=== PATIENT | male | born 1990 | race Caucasian/White ===

== ENCOUNTER 2024-08-09 13:14 | Outpatient (OUT) | payer OTHER, SELFPAY ==
[2024-08-09 14:15] LABS: Basophils Percent Auto 0.8 % (0.2-2.0); Eosinophils Absolute Auto 0.1 10^3/uL (0.0-0.7); Eosinophils Percent Auto 1.2 % (0.9-7.0); Hematocrit 41.5 % (42.0-54.0); Hemoglobin 15.1 g/dL (14.0-18.0); Immature Granulocytes Abs Auto 0.01 10^3/uL (0.00-0.03); Immature Granulocytes Pct Auto 0.2 % (0.0-0.5); Lymphocytes Absolute Auto 1.6 10^3/uL (1.2-3.8); Lymphocytes Percent Auto 32.6 % (20.5-60.0); Mean Corpuscular HGB Conc 36.4 g/dL (29.9-35.2); Mean Corpuscular Hemoglobin 33.5 pg (25.9-34.0); Mean Platelet Volume 10.2 fL (9.5-13.5); Monocytes Absolute Auto 0.4 10^3/uL (0.3-0.8); Monocytes Percent Auto 8.4 % (1.7-12.0); Neutrophils Absolute Auto 2.8 10^3/uL (1.4-6.5); Neutrophils Percent Auto 56.8 % (43.0-75.0); Platelet Count 223 10^3/uL (150-450); Red Blood Count 4.51 10^6/uL (4.70-6.10); White Blood Count 4.9 10^3/uL (4.0-11.0)
[2024-08-09 14:16] LABS: Bilirubin Urine NEGATIVE (NEGATIVE); Blood Urine NEGATIVE (NEGATIVE); Clarity Urine CLEAR (CLEAR); Color Urine LT. YELLOW (YELLOW); Glucose Urine UA NEGATIVE (NEGATIVE); Ketones Urine NEGATIVE (NEGATIVE); Leukocyte Esterase Urine NEGATIVE (NEGATIVE); Nitrite Urine NEGATIVE (NEGATIVE); Protein Urine NEGATIVE (NEG/TRACE); Urobilinogen Urine 0.2 EU/dL (0.2-1.0); pH Urine 7.5 (5.0-9.0)
[2024-08-09 14:20] LABS: Urine Microscopic Indicated NO
[2024-08-09 15:09] LABS: Alanine Aminotransferase 25 U/L (16-63); Albumin Globulin Ratio 1.3; Albumin Level 4.1 g/dL (3.4-5.0); Alkaline Phosphatase 65 U/L (46-116); Anion Gap 7.5; Aspartate Amino Transferase 19 U/L (15-37); BUN Creatinine Ratio 9.3; Bilirubin Total 0.7 mg/dL (0.2-1.0); Calcium 9.1 mg/dL (8.5-10.1); Carbon Dioxide 33.3 mmol/L (21.0-32.0); Chloride 107 mmol/L (98-107); Estimated GFR (African America >60 (>=60 mL/min/1.73m^2); Estimated GFR (Non-African Ame >60 (>=60 mL/min/1.73m^2); Globulin 3.1 g/dL; Glucose 68 mg/dL (74-106); Potassium 3.8 mmol/L (3.5-5.1); Sodium 144 mmol/L (136-145); Thyroid Stimulating Hormone 1.248 uIU/mL (0.358-3.740); Total Protein 7.2 g/dL (6.4-8.2)
[2024-08-10 06:07] LABS: Vitamin B12 364 pg/mL (232-1245)
== END 2024-08-09 13:15 | disposition home or self-care (01) ==
LOC: LAB 13:20
PROVIDERS: PCP Nurse Practitioner; Visit Provider Nurse Practitioner
DX: F10.10 Alcohol abuse, uncomplicated (principal); R10.84 Generalized abdominal pain; F41.9 Anxiety disorder, unspecified
CPT/HCPCS: 36415; 80053; 81003; 82607; 82746; 84443; 85025

== ENCOUNTER 2024-09-14 08:57 | Emergency (ER) | payer SELFPAY ==
--- OUTSIDE RECORDS SUMMARY | 2019-08-08 20:12 | XMS_ITS | Continuity of Care Document ---
Author Organization [facility] Address [address] [place] [address] Phone Care Team Providers Care Draw Frame Tender Name Role Phone Pavlock DO, Max Unavailable Unavailable Allergies, Adverse Reactions, Alerts Substance Reaction Status Criticality trimethoprim Unknown Active No Information sulfamethoxazole Unknown Active No Informat ion Medications Medication Instructions Dosage Effective Dates (start - stop) Status Comments multivitamin tablet 1 tablet by mouth daily as needed - No Longer Active omeprazole 20 mg capsule,delayed release 1 tablet by mouth daily as needed - No Longer Active dicyclomine 20 mg tablet 20mg PO Q6H PRN abdominal cramping as needed - No Longer Active Imodium A-D 2 mg capsule 2mg PO PRN after each loose stool as needed - No Longer Active Do not exceed 16mg in 24 hours magnesium hydroxide 400 mg/5 mL oral suspension 30mL PO daily PRN constipation as needed - No Longer Active magnesium citrate (bulk) powder 1 bottle 12 hours after second Milk of Magnesia with continued constipation as needed - No Longer Active Colace 100 mg capsule 100mg PO BID PRN constipation as needed - No Longer Active calcium carbonate (bulk) powder 10mL PO TID PRN heartburn/indigest ion as needed - No Longer Active Tums 200 mg calcium (500 mg) chewable tablet 1-2 tablets PO TID PRN heartburn/digestio n as needed - No Longer Active loratadine 10 mg tablet 10mg PO daily PRN nasal congestion as needed - No Longer Active ibuprofen 600 mg tablet 600mg PO Q6H PRN pain as needed - No Longer Active Acetaminophen Extra Strength 500 mg tablet 1000mg PO Q4H PRN pin or temperature >99 F as needed - No Longer Active Do not exceed 4000mg in a 24 hour period. promethazine 25 mg tablet 25mg PO Q8H PRN nausea and vomiting as needed - No Longer Active Zofran 8 mg tablet 8mg PO Q6H PRN nausea and vomiting as needed - No Longer Active Reglan 10 mg tablet 10mg PO TID PRN nausea and vomiting as needed - No Longer Active hydroxyzine pamoate 50 mg capsule 50mg PO Q6H PRN anxiety as needed - No Longer Active doxepin 25 mg capsule 25mg PO QHS PRN insomnia as needed - No Longer Active Do not combine with other sleep aids. 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 Operator Acute Detox Cotton Picking Machine Operator Acute Detox Cotton Picking Machine Operator Alcohol and/or drug services- Acute Deto x Alcohol and/or drug services- Acute Deto x Alcohol and/or drug services- Acute Deto x Alcohol and/or drug services- Acute Deto x Alcohol and/or drug services- Acute Deto x DRUG TEST PRSMV DIR OPT OBS Nutrit Couns For Control Of [place] Dis Feb Tobacco Counseling Oral Hygiene Instruction Extract; Erupted Th/exposted Rt 019 Extract; Erupted Th/exposted Rt 019 Limited Oral Eval Advance Directives Directive Yes / No Effective Date File Name No Information Encounters Encounter Description Practice Location Reason(s) For Visit Diagnoses Date Provider Providers Copied on Encounter [facility], [address], [place], [id number], tel:[phone] [facility] Detox Opioid dependence with withdrawal 0 Pavlock DO Max. [address], [place], [id number], [place]. tel:[phone] [facility], [address], [place], [id number], [place] tel:[phone] [facility] Detox suboxone dependence (chief complaint) Opioid dependence with withdrawal 0 Johan Parks. [address], [place], [id number], [place]. tel:[phone] [facility], [address], [place], [id number], [place] tel:[phone] [facility] Detox Opioid dependence with withdrawal 0 Pavlock DO Max. [address], [place], [id number], [place]. tel:[phone] [facility], [address], [place], [id number], [place] tel:[phone] [facility] Detox Opioid dependence with withdrawal 0 Pavlock DO Max. [address], [place], [id number], [place]. tel:[phone] [facility], [address], [place], [id number], [place] tel:[phone] [facility] Detox Opioid dependence with withdrawal Mar- 6-202 0 Pavlock DO Max. [address], [place], [id number], [place]. tel:[phone] [facility], [address], [place], [id number], [place] tel:[phone] [facility] Detox Opioid dependence with withdrawal Mar-1 5-202 0 Pavlock DO Max. [address], [place], [id number], [place]. tel:[phone] [facility], [address], [place], [id number], [place] tel:[phone] [facility] Detox Opioid dependence with withdrawal May- 4-202 0 Pavlock DO Max. [address], [place], [id number], [place]. tel:[phone] [facility], [address], [place], [id number], [place] tel:[phone] [facility] Detox Opioid dependence with withdrawal Mar-1 3-202 0 Pavlock DO Max. [address], [place], [id number], [place]. tel:[phone] [facility], [address], [place], [id number], [place] tel:[phone] [facility] Detox heroin dependence (chief complaint) Opioid dependence with withdrawal Mar-1 2-202 0 Johan Parks. [address], [place], [id number], [place]. tel:[phone] [facility], [address], [place], [id number], [place] tel:[phone] [facility] Detox Opioid dependence with withdrawal Mar- 2-202 0 Pavlock DO Max. [address], [place], [id number], [place]. tel:[phone] [facility], [address], [place], [id number], tel:[phone] [facility] Detox Opioid dependence with withdrawal 0 Pavlock DO Max. [address], [place], [id number], [place]. tel:[phone] [facility], [address] [place] [address], [id number], tel:[phone] Dental Clinic EXT (chief complaint) Encounter for screening for dental disorders 9 [place] [facility] Gil. [address], [place], [id number], [place]. tel:[phone] [facility], [address] [place] [address], [id number], [place] tel:[phone] [facility] Detox No Information 0 Pavlock DO Max. [address], [place], [id number], [place]. tel:[phone] Family History Family Member Type Diagnosis Age At Onset Problem (finding) Family history of Diabe sky mellitus Problem (finding) Family history of Cardi ovascular disease Problem (finding) Family history of Cance r, unknown Payers Payer name Insurance type Covered alliance party ID Authorvasua rafa(s) [facility] [id number] Social History Type Description Quantity Date Captured Comments Alcohol Use Details Unknown Caffeine Use Details Unknown Tobacco Use Status Smoking Status No Information Sex Male Sexual Orientation Straight or heterosexual Gender Identity Male Vital Signs Date / Time: Height Weight BMI Pulse Rate Blood Pressure Temperature Respiratory Rate Body Surface Area Head Circumference Head Circ. Percentile Wt./Mruali. Percentile BMI percentile Pulse Ox Inhaled Ox 5:58 AM 96 /min 104/61 mm[Hg] 98 % Chief Complaint And Reason For Visit No Information Reason For Referral Reason For Referral No Information History Of Present Illness Encounter Date Complaint History Of Prese nt Illness suboxone dependence 28 year old male checked in to detox yesterday and reports last taking suboxone 2 days ago. He typically takes 16mg/day and has been using suboxone for last 2 months. He was taking heroin for 12 years previous. He last attended detox 3-4 months ago.surgical hx- R scaphoidallergies- bactrimmeds- nonetobacco- 1/2-1ppdalcohol- noneplans upon completing detox- meetings heroin dependence 28 year old kwesi lopez checked in to detox yesterday and reports last using heroin yesterday. He typically snorts 1g/day and has been using opiates for 15 years. He has attended detox twice prior with the last being May 2018.surgical hx- scaphoidallergies- bactrimmeds- nonetobacco- 1/2 ppdalcohol- relapsed on alcohol 2 weeks ago.plans upon completing detox- suboxone EXT EXT Functional Status Date Functional Assessmen t No Information Instructions Date Instruction Additional Infor mation No Information Assessments Type Assessment Date assessment Opioid dependence with withdrawa l Patient Care Teams Name Effective Dates (start - stop) Status Members No Information
[2024-09-14 09:05] VITALS: BP 124/94; PULSE 67; TEMP 36.7; O2SAT 100; BMI 25.4
--- OUTSIDE RECORDS SUMMARY | 2024-09-14 09:11 | XMS_ITS | Encounter Summary ---
Author Organization [facility] Address [address] [place] [address] Care Team Providers Care Mailing Specialist Name Role Phone Elda Almazan ALCOHOLIC COUNSELOR Unavailable [phone] Joaquim Lucas MD Primary Care Provider [phone] Joaquim Lucas MD Primary Care Provider [phone] Elda Almazan ALCOHOLIC COUNSELOR Unavailable [phone] Encounter Details Date Type Department Care Team (Late st Contact Info) Description 05/23/2023 Abstract [facility] [address] [place] [id number] Elda Almazan ALCOHOLIC COUNSELOR [address] [place] [id number] Social History Tobacco Use Types Packs/Day Years Used Date Smoking Tobacco: Every Day Cigarettes Alcohol Use Standard Drinks/Week Comments Yes 0 (1 standard drink = 0.6 oz pur e alcohol) monthly or less Humiliation, Afraid, Rape, and Kick questionnair e Answer Date Recorded Within the last year, have y ou been afraid of your partner or ex-partner? No 03/03/2023 Within the last year, have y ou been humiliated or emotionally abused in other ways by your partner or ex-partner? Patient declined 03/03/2023 Within the last year, have y ou been kicked, hit, slapped, or otherwise physically hurt by your partner or ex-partner? Patient declined 03/03/2023 Within the last year, have y ou been raped or forced to have any kind of sexual activity by your partner or ex-partner? Patient declined 03/03/2023 Social Connection and Isolation Panel [NHANES] A nswer Date Recorded Frequency of Communication with Friends and Fami ly Not on file 03/03/2023 How often do you get togethe r with friends or relatives? Once a week 03/03/2023 How often do you attend druze or restorationist serv ices? Never 03/03/2023 Do you belong to any clubs o r organizations such as druze groups, unions, fraternal or athletic groups, or school groups? No 03/03/2023 How often do you attend meet ings of the clubs or organizations you belong to? Patient declined 03/03/2023 Are you , , di vorced, , never , or living with a partner? Patient declined 03/03/2023 AUDIT-C Answer Date Recorded Q1: How often do you have a drink containing alc ohol? Patient declined 03/03/2023 Q2: How many drinks containi ng alcohol do you have on a typical day when you are drinking? Patient declined 03/03/2023 Q3: How often do you have si x or more drinks on one occasion? Patient declined 03/03/2023 Overall Financial Resource Strain (CARDIA) Answe r Date Recorded How hard is it for you to pa y for the very basics like food, housing, medical care, and heating? Patient declined 03/03/2023 [facility] - Occupational Stress Questionnaire Answer Date Recorded Do you feel stress - tense, restless, nervous, or anxious, or unable to sleep at night because your mind is troubled all the time - these days? To some extent 03/03/2023 Exercise Vital Sign Answer Date Recorde d On average, how many days pe r week do you engage in moderate to strenuous exercise (like a brisk walk)? 2 days 03/03/2023 On average, how many minutes do you engage in exercise at this level? 60 min 03/03/2023 Hunger Vital Sign Answer Date Recorded Within the past 12 months, y ou worried that your food would run out before you got the money to buy more. Patient declined Within the past 12 months, t he food you bought just didn't last and you didn't have money to get more. Patient declined 01/2023 PRAPARE - Transportation Answer Date Re corded In the past 12 months, has l ack of transportation kept you from medical appointments or from getting medications? Patient declined 03/03/2023 In the past 12 months, has l ack of transportation kept you from meetings, work, or from getting things needed for daily living? Patient declined 03/03/2023 Housing Stability Vital Sign Answer Griffin e Recorded In the last 12 months, was t here a time when you were not able to pay the mortgage or rent on time? Patient refused 03/03/20 23 In the last 12 months, how many places have you lived? 1 03/03/2023 In the last 12 months, was t here a time when you did not have a steady place to sleep or slept in a custodial (including now)? Patient refused 03/03/2023 Sex and Gender Information Value Date Recorded Sex Assigned at Not on file Legal Sex Male 6:42 PM EDT Gender Identity Not on file Sexual Orientation Not on file documented as of this encounter Plan of Treatment Not on file documented as of this encounter Visit Diagnoses Not on filedocumented in this encounter Care Teams Mailing Specialist Relationship Specialty Start Date End Date Joaquim Lucas MD [address] [place] [phone] PCP - General Family Medicine 02/26/23 07/27/23 Joaquim Lucas MD [address] [place] [phone] PCP - General Family Medicine 07/28/23 Elda Almazan NP [address] [place] [phone] Nurse Practitioner Family Medicine 02/26/23 Elda Almazan NP [address] [place] [phone] Nurse Practitioner Family Medicine 07/28/23 documented as of this encounter
--- OUTSIDE RECORDS SUMMARY | 2024-09-14 09:11 | XMS_ITS | Clinical Summary ---
Author Organization [facility] Address [id number] [address] [place] [address] Care Team Providers Care Environmental Studies Program Director Name Role Phone Anastasiya Gavin MD Primary Care Provider [phone] Allergies Active Allergy Reactions Criticality Noted Date Comments Sulfamethoxazole-Trimethoprim Hives 2017 Medications UNABLE TO FIND kratom Activ e metoprolol tartrate (LOPRESSOR) 25 mg tablet Take 1 tablet (25 mg total) by mouth once as needed (tachycardi a) for up to 1 dose. 15 tablet 1 04/01/2018 Active Active Problems Problem Noted Date Diagnosed Date SOB (shortness of breath) 04/01/2018 Abnormal EKG 06/11/2017 Heart murmur 06/11/2017 Chest pain Anxiety Palpitations Family History Medical History Relation Name Comments Coronary artery disease Father No Known Problems Mother Relation Name Status Comments Father Mother Social History Tobacco Use Types Packs/Day Years Used Date Smoking Tobacco: Every Day Cigarettes Smokeless Tobacco: Former Alcohol Use Standard Drinks/Week Comments No 0 (1 standard drink = 0.6 oz pure alcohol) History of alcohol abuse, not currently drinking Childcare Answer Date Recorded Childcare Unknown 09/02/2018 Employment Answer Date Recorded Employment Unknown 09/02/2018 Purpose - Life Answer Date Recorded Purpose and direction in life Unknown Sex and Gender Information Value Date Recorded Sex Assigned at Not on file Legal Sex Male 11:42 AM EDT Gender Identity Not on file Sexual Orientation Not on file Last Filed Vital Signs Vital Sign Reading Time Taken Comments Blood Pressure 112/68 04/01/2018 9:19 AM EST Pulse 76 04/01/2018 9:19 AM EST Temperature 36.8 C (98.3 F) 03/20/2018 3:24 PM EST Respiratory Rate 11 03/20/2018 5:00 PM EST Oxygen Saturation 99% 03/20/2018 5:00 PM EST Inhaled Oxygen Concentration - - Weight 72.6 kg (160 lb) 04/02/2018 8:03 AM EST Height 175.3 cm (5' 9 ) 04/02/2018 8:03 AM EST Body Mass Index 23.63 04/02/2018 8:03 AM EST Plan of Treatment Health Maintenance Due Date Last Done Comments Depression Screening 2001 Tobacco Screening 2001 Adult BMI Screening 09/30/2007 DTaP,Tdap and Td Vaccines (1 - Tdap) 2008 Influenza Vaccine 11/22/2024 Medical Devices Not on file Insurance Care Teams Environmental Studies Program Director Relationship Specialty Start Date End Date Anastasiya Gavin MD [address] [place] [address] PCP - General Family Medicine 05/28/18
--- NOTE | 2024-09-14 09:21 | ECG_ITS ---
[facility] Test Date: 2024-09-14 Pat Name: VENTURA COOLEY Department: Room: - Gender: Male Property Economist: : 1990 Requested By: [id number] Order Number: [id number] Reading MD: ALINA SANCHEZ M.D. Measurements Intervals [place] Rate: 53 P: 66 MA: 198 QRS: 102 QRSD: 128 T: 67 QT: 416 QTc: 398 Interpretive Statements 1100 Sinus rhythm RIGHT BUNDLE BRANCH BLOCK 7100 Abnormal right axis deviation Abnormal ECG No previous ECG available for comparison Electronically Signed On 09-14-2024 9:33:47 EDT by ALINA SANCHEZ M.D.
--- NOTE | 2024-09-14 09:21 | ED.GENADUL1 ---
HPI HPI - General Adult General Chief complaint: Dental/Oral Stated complaint: WITHDRAWLS DENTAL PAIN Time Seen by Provider: 09/14/24 09:08 History of Present Illness HPI narrative: 33-year-old male presents to the emergency department for 2 issues. First he has been having some dental pain. He has been having a problem with a tooth in his right upper dentition and does not have a dentist. Right now it is not hurting but sometimes he gets nerve pain and it shoots down into his chest. Secondly, he is weaning himself off of alcohol and has not had anything to drink for 3 days. He has been feeling a bit anxious. He has been through alcohol treatment centers in the past, the last time was a few months ago. He is not interested in doing that again mostly because of the cost. Related Data Previous Rx's ?Medication ?Instructions ?Recorded ibuprofen 800 mg tablet 800 mg PO Q8H PRN pain #20 tabs 09/14/24 lorazepam 1 mg tablet (Ativan) 1 mg PO Q8H PRN alcohol withdrawal 09/14/24 4 days #14 tabs penicillin V potassium 250 mg 250 mg PO QID 10 days #40 tabs 09/14/24 tablet Allergies Allergy/AdvReac Type Severity Reaction Status Date / Time sulfamethoxazole (From Allergy Severe Hives Verified 09/14/24 09:08 Bactrim) trimethoprim (From Bactrim) Allergy Severe Hives Verified 09/14/24 09:08 Opioid HPI Opioid Management Most Recent Opioid Data: Last Pain Scale 4 Today, 09:05 Review of Systems ROS Narrative A ten point review of systems is negative except as noted above. PFSH PFSH Social History Little interest or pleasure in doing things: not at all Feeling down, depressed, or hopeless: not at all Exam Narrative Exam Narrative: Nurses note and vital signs reviewed and patient is not hypoxic. General: The patient appears well and in no apparent distress. Patient is resting comfortably on cart. Skin: Warm, dry, no pallor noted. There is no rash noted. Head: Normocephalic, atraumatic Eye: Normal conjunctiva, no drainage Ears, Nose, Mouth, and Throat: oral mucosa is moist. Nares patent. No swelling to the floor of his mouth. He is handling his oral secretions well. No gingival swelling or erythema. No bleeding or pus present. Cardiovascular: Regular Rate and Rhythm Respiratory: Patient is in no distress, no accessory muscle use, lungs are clear to auscultation, no wheezing, rales or rhonchi Back: non-tender GI: Soft and nontender Musculoskeletal: The patient has no evidence of calf tenderness, no pitting edema, symmetrical pulses noted bilaterally Neurological: A&O, normal speech Psychiatric: Cooperative, tearful at times Constitutional Vital Signs, click to edit/add: Last Vital Signs Temp 98.1 F 09/14/24 09:05 Pulse 67 09/14/24 09:05 Resp 16 09/14/24 09:05 BP 124/94 H 09/14/24 09:05 Pulse Ox 100 09/14/24 09:05 O2 Del Method Room Air 09/14/24 09:05 Course Vital Signs Vital signs: Vital Signs Temperature 98.1 F 09/14/24 09:05 Pulse Rate 67 09/14/24 09:05 Respiratory Rate 16 09/14/24 09:05 Blood Pressure 124/94 H 09/14/24 09:05 Pulse Oximetry 100 09/14/24 09:05 Oxygen Delivery Method Room Air 09/14/24 09:05 Temperature 98.1 F 09/14/24 09:05 Pulse Rate 67 09/14/24 09:05 Respiratory Rate 16 09/14/24 09:05 Blood Pressure 124/94 H 09/14/24 09:05 Pulse Oximetry 100 09/14/24 09:05 Oxygen Delivery Method Room Air 09/14/24 09:05 Medical Decision Making MDM Narrative Medical decision making narrative: The patient was prescribed penicillin. He was offered Toradol but does not feel he needs an injection. He was also prescribed ibuprofen, no narcotics. He was prescribed a short course of Ativan for alcohol withdrawal. He has been in alcohol treatment centers before and states he has lots of resources and if he decides to go to he can do so. Treatment diagnosis and follow-up were discussed with the patient. Differential Diagnosis Differential Diagnosis: Dental caries, toothache, alcohol withdrawal Discharge Plan Discharge Chief Complaint: Dental/Oral Clinical Impression: Toothache, Alcohol withdrawal Patient Disposition: Home, Self-Care Time of Disposition Decision: 10:08 Condition: Good Mode of Transportation: Private Vehicle Prescriptions / Home Meds: New penicillin V potassium 250 mg tablet 250 mg PO QID 10 Days Qty: 40 0RF ibuprofen 800 mg tablet 800 mg PO Q8H PRN (Reason: pain) Qty: 20 0RF lorazepam [Ativan] 1 mg tablet 1 mg PO Q8H PRN (Reason: alcohol withdrawal) 4 Days Qty: 14 0RF Print Language: Czech Instructions: Alcohol Withdrawal (ED), Toothache (ED) Referrals: Elda Almazan CREATIVE SERVICES DESIGNER [Primary Care Provider, Family Practice] - 1 week
== END 2024-09-14 10:19 | disposition home or self-care (01) ==
PROVIDERS: Emergency Provider Emergency Medicine; PCP Nurse Practitioner
DX: K08.89 Other specified disorders of teeth and supporting structures (principal); F10.239 Alcohol dependence with withdrawal, unspecified
CPT/HCPCS: 93005; 99283

== ENCOUNTER 2024-11-09 12:12 | Emergency (ER) | payer MEDICAID, SELFPAY ==
[2024-11-09 12:15] VITALS: BP 137/83; PULSE 74; TEMP 37.2; O2SAT 99; BMI 24.7
--- NOTE | 2024-11-09 12:35 | ED_ITS ---
HPI HPI - General Adult General Chief complaint: Abdominal Pain Stated complaint: BOWEL PAINS Time Seen by Provider: 11/09/24 12:26 Source: patient Mode of arrival: walk-in Limitations: no limitations History of Present Illness HPI narrative: The patient is a 34-year-old male who is coming to us from a detox facility after he was admitted there for kratom and alcohol abuse, the patient is coming to the ER with constipation symptoms that he has been dealing with for the last week at least and he last took magnesium citrate almost 3 days ago that did not help him to go to the bathroom except for mildly, patient still passing gas, he has no abdominal pain but he is having abdominal distention No nausea no vomiting no history of abdominal surgeries Related Data Home Medications ?Medication ?Instructions ?Recorded ?Confirmed buspirone 10 mg tablet 10 mg PO .QHS PRN anxiety 11/09/24 clonidine HCl 0.1 mg tablet 0.1 mg PO Q12H PRN withdra wal 11/09/24 11/09/24 symptoms hydroxyzine pamoate 25 mg capsule 25 mg PO BID PRN anx iety 11/09/24 11/09/24 (Vistaril) Previous Rx's ?Medication ?Instructions ?Recorded ibuprofen 800 mg tablet 800 mg PO Q8H PRN pain #20 t abs 09/14/24 lorazepam 1 mg tablet (Ativan) 1 mg PO Q8H PRN alcohol withdrawal 09/14/24 4 days #14 tabs penicillin V potassium 250 mg 250 mg PO QID 10 days #4 0 tabs 09/14/24 tablet peg 3350-electrolytes 236 240 ml PO DAILY PRN constipa tion 11/09/24 gram-22.74 gram-6.74 gram-5.86 #4,000 mL gram solution (Golytely) Allergies Allergy/AdvReac Type Severity Reaction Status Date / Time sulfamethoxazole (From Allergy Severe Hives Verified 11/09/24 12:19 Bactrim) trimethoprim (From Bactrim) Allergy Severe Hives Verified 11/09/24 12:19 Opioid HPI Opioid Management Most Recent Opioid Data: Last Pain Scale 4 09/14/24, 09:05 Review of Systems ROS Status of ROS 10 or more systems reviewed and unremark able except as noted in history and below PFSH PFSH Social History Little interest or pleasure in doing things: not at all Feeling down, depressed, or hopeless: not at all Exam Narrative Exam Narrative: Nurses notes and vital signs reviewed and patient is not hypoxic. General: Well-appearing and in no apparent distress. Skin: Warm, dry, no pallor noted. No rash. Head: Normocephalic, atraumatic. Neck: Supple, non-tender. Eye: Pupils are equal, round and EOMI. No scleral icterus. Cardiovascular: Regular Rate and Rhythm without murmur, gallop or rub. Respiratory: No accessory muscle use or respiratory distress. Lungs are clear to auscultation, no wheezing, rales or rhonchi Chest Wall: no tenderness Back: No midline thoracic or lumbar vertebral tenderness. No CVA tenderness Musculoskeletal: normal ROM, no calf or popliteal tenderness, no lower extremity edema/swelling GI: Abdomen is soft, non-distended. Normal bowel sounds. No masses appreciated. No tenderness to palpation. No rebound, guarding, or rigidity noted. Neurological: A&O x4. No cranial nerve dysfunction observed. Constitutional Vital Signs, click to edit/add: Last Vital Signs Temp 98.9 F 11/09/24 12:15 Pulse 68 11/09/24 13:34 Resp 16 11/09/24 13:34 BP 109/70 11/09/24 13:34 Pulse Ox 97 11/09/24 13:34 O2 Del Method Room Air 11/09/24 13:34 Course Vital Signs Vital signs: Vital Signs Temperature 98.9 F 11/09/24 12:15 Pulse Rate 74 11/09/24 12:15 Respiratory Rate 18 11/09/24 12:15 Blood Pressure 137/83 11/09/24 12:15 Pulse Oximetry 99 11/09/24 12:15 Oxygen Delivery Method Room Air 11/09/24 12:15 Temperature 98.9 F 11/09/24 12:15 Pulse Rate 68 11/09/24 13:34 Respiratory Rate 16 11/09/24 13:34 Blood Pressure 109/70 11/09/24 13:34 Pulse Oximetry 97 11/09/24 13:34 Oxygen Delivery Method Room Air 11/09/24 13:34 Medical Decision Making MDM Narrative Medical decision making narrative: The patient CBC and chemistry showed no acute pathology except for mild elevation of the LFTs The patient also had x-ray of the abdomen shows moderate burden of stool The patient right now was started on GoLytely I did explain to him extensively that he need to follow-up with gastroenterology as outpatient, patient had a lot of questions and it seemed that he thought that he will get the colonoscopy done right away I did explain to him that he need to do that as outpatient right now as he does not have any abdominal pain or nausea or vomiting the patient can follow-up with outpatient The patient was discharged home with a GoLytely prescription of 240 mg daily as needed for constipation and instruction to come back in case of any increasing discomfort or pain or any nausea or vomiting Patient referred to gastroenterology as outpatient The patient is to follow up with primary care physician in next 2-3 days or to return to the emergency department should any of the signs or symptoms worsen or new symptoms develop. The patient agrees with the following Diagnosis and Treatment plan and the patient will be discharged home. Lab Data Labs: Lab Results 11/09/24 Range/Units 12:43 WBC 3.5 L (4.0-11.0) 10^3/uL RBC 4.26 L (4.70-6.10) 10^6/uL Hgb 14.2 (14.0-18.0) g/dL Hct 38.7 L (42.0-54.0) % MCV 90.8 (80.0-94.0) fL MCH 33.3 (25.9-34.0) pg MCHC 36.7 H (29.9-35.2) g/dL RDW 11.7 (11.0-15.0) % Plt Count 189 (150-450) 10^3/uL MPV 10.3 (9.5-13.5) fL Neut % (Auto) 44.6 (43.0-75.0) % Lymph % (Auto) 37.9 (20.5-60.0) % [place] % (Auto) 14.7 H (1.7-12.0) % Eos % (Auto) 1.7 (0.9-7.0) % Baso % (Auto) 0.8 (0.2-2.0) % Neut # (Auto) 1.6 (1.4-6.5) 10^3/uL Lymph # (Auto) 1.3 (1.2-3.8) 10^3/uL [place] # (Auto) 0.5 (0.3-0.8) 10^3/uL Eos # (Auto) 0.1 (0.0-0.7) 10^3/uL Baso # (Auto) 0.0 (0.0-0.1) 10^3/uL Abs Immat Gran (auto) 0.01 (0.00-0.03) 10^3/uL Imm/Tot Granulo (auto) 0.3 (0.0-0.5) % Sodium 138 (136-145) mmol/L Potassium 3.8 (3.5-5.1) mmol/L Chloride 103 (98-107) mmol/L Carbon Dioxide 28.3 (21.0-32.0) mmol/L Anion Gap 10.5 BUN 8.0 (7.0-18.0) mg/dL Creatinine 0.87 (0.70-1.30) mg/dL Est GFR ( Amer) >60 (>=60 mL/min/1.73m^2) Est GFR (Non-Af Amer) >60 (>=60 mL/min/1.73m^2) BUN/Creatinine Ratio 9.2 Glucose 89 (74-106) mg/dL Calcium 8.7 (8.5-10.1) mg/dL Magnesium 2.0 (1.8-2.4) mg/dL Total Bilirubin 0.5 (0.2-1.0) mg/dL AST 64 H (15-37) U/L ALT 80 H (16-63) U/L Alkaline Phosphatase 58 (46-116) U/L Total Protein 7.4 (6.4-8.2) g/dL Albumin 4.1 (3.4-5.0) g/dL Globulin 3.3 g/dL Albumin/Globulin Ratio 1.2 Discharge Plan Discharge Chief Complaint: Abdominal Pain Clinical Impression: Constipation Patient Disposition: Home, Self-Care Time of Disposition Decision: 13:43 Condition: Good Prescriptions / Home Meds: New peg 3350-electrolytes [Golytely] 236-22.74-6.74 -5.86 gram recon soln 240 ml PO DAILY PRN (Reason: constipation) Qty: 4000 0RF Rx Instructions: until fecal effluent is clear No Action penicillin V potassium 250 mg tablet 250 mg PO QID 10 Days Qty: 40 0RF ibuprofen 800 mg tablet 800 mg PO Q8H PRN (Reason: pain) Qty: 20 0RF lorazepam [Ativan] 1 mg tablet 1 mg PO Q8H PRN (Reason: alcohol withdrawal) 4 Days Qty: 14 0RF buspirone 10 mg tablet 10 mg PO .QHS PRN (Reason: anxiety) hydroxyzine pamoate [Vistaril] 25 mg capsule 25 mg PO BID PRN (Reason: anxiety) clonidine HCl 0.1 mg tablet 0.1 mg PO Q12H PRN (Reason: withdrawal symptoms) Print Language: Bulgarian Instructions: Constipation (DC) Referrals: CHRISTOPHER MANUEL [Physician, Gastroenterology] - 1 week Elda Almazan NP [Primary Care Provider, Family Practice] - 1 week
--- NOTE | 2024-11-09 12:35 | XR_ITS ---
The [address] [address] Patient Name: VENTURA COOLEY MRN: [id number] date: 1990 Sex: M Assigned Patient Location: ER Current Patient Location: ER Accession/Order Number: [id number] Exam Date: 11/09/2024 13:13 Report Date: 11/09/2024 13:14 At the request of: ALISA BOUDREAUX MD Procedure: XR abdomen 1V Single frontal view of the abdomen INDICATION: Constipation COMPARISON: None FINDINGS: Moderate stool burden. No definite small bowel obstruction. No radiopaque calcifications overlying the renal shadows. XR/XR abdomen 1V IMPRESSION: Moderate stool burden. Impression dictated by: Fei Merida M.D. 11/09/2024 1:14 PM Dictation Location: [place] [address] Electronically authenticated by: [id number] Y Date: 11/09/2024 13:14
[2024-11-09 12:50] LABS: Hematocrit 38.7 % (42.0-54.0); Hemoglobin 14.2 g/dL (14.0-18.0); Immature Granulocytes Abs Auto 0.01 10^3/uL (0.00-0.03); Immature Granulocytes Pct Auto 0.3 % (0.0-0.5); Lymphocytes Absolute Auto 1.3 10^3/uL (1.2-3.8); Mean Corpuscular HGB Conc 36.7 g/dL (29.9-35.2); Mean Corpuscular Hemoglobin 33.3 pg (25.9-34.0); Mean Corpuscular Volume 90.8 fL (80.0-94.0); Platelet Count 189 10^3/uL (150-450); Red Blood Count 4.26 10^6/uL (4.70-6.10); White Blood Count 3.5 10^3/uL (4.0-11.0)
[2024-11-09 13:07] LABS: Alanine Aminotransferase 80 U/L (16-63); Albumin Globulin Ratio 1.2; Albumin Level 4.1 g/dL (3.4-5.0); Alkaline Phosphatase 58 U/L (46-116); Anion Gap 10.5; Aspartate Amino Transferase 64 U/L (15-37); Blood Urea Nitrogen 8.0 mg/dL (7.0-18.0); Calcium 8.7 mg/dL (8.5-10.1); Carbon Dioxide 28.3 mmol/L (21.0-32.0); Chloride 103 mmol/L (98-107); Estimated GFR (African America >60 (>=60 mL/min/1.73m^2); Estimated GFR (Non-African Ame >60 (>=60 mL/min/1.73m^2); Globulin 3.3 g/dL; Glucose 89 mg/dL (74-106); Magnesium 2.0 mg/dL (1.8-2.4); Potassium 3.8 mmol/L (3.5-5.1); Sodium 138 mmol/L (136-145); Total Protein 7.4 g/dL (6.4-8.2)
[2024-11-09 13:34] VITALS: BP 109/70; PULSE 68; O2SAT 97
== END 2024-11-09 14:00 | disposition home or self-care (01) ==
PROVIDERS: Emergency Provider Emergency Medicine; PCP Nurse Practitioner
DX: K59.00 Constipation, unspecified (principal); R14.0 Abdominal distension (gaseous)
CPT/HCPCS: 36415; 74018; 80053; 83735; 85025; 99284